=== PATIENT | male | born 1965 | race Native Hawaiian/Other Pacific Islander ===

== ENCOUNTER 2019-02-19 13:54 | Outpatient (CLI) | payer OTHER ==
[2019-02-19 14:52] LABS: POTASSIUM 4.4 mmol/L (3.6-5.2)
[2019-02-19 14:54] LABS: PLATELET COUNT 350 K/uL (142-355)
== END 2019-02-19 19:48 | disposition home or self-care (01) ==
LOC: LAB 13:54
PROVIDERS: Thoracic Surgery (Cardiothoracic Vascular Surgery)
DX: Z45.2 Encounter for adjustment and management of vascular access device (principal); T82.7XXD Infection and inflammatory reaction due to other cardiac and vascular devices, implants and grafts, subsequent encounter; I10 Essential (primary) hypertension; Z79.2 Long term (current) use of antibiotics
CPT/HCPCS: 80053; 82552; 85027; 86140